=== PATIENT | female | born 1965 | race Caucasian/White ===

== ENCOUNTER → 2021-08-22 | Day surgery (SDC) | payer OTHER ==
[~2021-08-22] VITALS: Ht 160 cm; Wt 90.7 kg
[~2021-08-22] MED LIST: ALEVE220 M1 PO; ASPIRIN CHEWABL81 MG PO; AZITHROMYCIN250 MG PO; BROMPHENIR-PSE118 ML PO; CALCIUM D3 PO; COLESTID 1GM TAB1 GM PO; EPSOM SALT454 GM TOP; FLONASE ALLER15.8 ML; PERCOCET 5-3251 EACH PO; PREDNISONE 10MG10 MG PO; PRILOSEC20 MG PO; PROBIOTIC1 EAC1 PO; SALONPAS PATCH1 EAC1 TOP; SENNA-TIME S T1 EACH PO; VENLAFAXINE H37.5 M1 PO; VENTOLIN HFA IN18 GM INH; VITAMIN D3125 MCG PO; ZYRTEC10 M3 PO; [UNRECOGNIZED DRUG - OTHER] PO
[2021-08-22 08:44] LABS: HCT 44.4 % (37.0-47.0); HGB 14.6 g/dl (12.5-16.0); MCH 28.3 pg (25.0-31.0); MCHC 32.9 g/dL (32.0-36.0); MPV 10.6 fL (6.0-9.5); RBC 5.16 M/uL (4.20-5.40); RDW 13.2 % (11.5-14.0); WBC 7.6 K/uL (4.0-10.5)
[2021-08-22 09:10] LABS: ALBUMIN 3.7 g/dL (3.4-5.0); BILIRUBIN - TOTAL 0.5 mg/dL (0.2-1.0); BUN/CREAT RATIO (CALC) 17.2 RATIO; CREATININE 0.64 mg/dL (0.51-0.95); GLOBULIN (CALCULATION) 3.9 g/dL; POTASSIUM 4.1 mmol/L (3.5-5.1); TOTAL PROTEIN 7.6 g/dL (6.4-8.2)
== END | disposition home or self-care (01) ==
LOC: FAS 07-31 11:15
PROVIDERS: Surgery
DX: R19.7 Diarrhea, unspecified (principal); K29.60 Other gastritis without bleeding; Z90.49 Acquired absence of other specified parts of digestive tract; Z90.710 Acquired absence of both cervix and uterus; Z87.891 Personal history of nicotine dependence; Z88.0 Allergy status to penicillin
CPT/HCPCS: 36415; 80053; J1100; J2250; J2405; J2704; J7120